=== PATIENT | male | born 1960 | race Caucasian/White ===

== ENCOUNTER 2021-05-22 21:58 | Emergency (ER) | payer BC, SELFPAY ==
--- NOTE | ~2021-05-22 | CT_ITS ---
EXAMINATION: CT abdomen pelvis wo con EXAM DATE: 05/22/2021 23:44 INDICATION: Left flank pain. TECHNIQUE: Spiral CT of the abdomen and pelvis was performed without contrast. Axial, coronal and sag ittal images were reviewed. The dose-length product (DLP) for this examination was 743.91 mGy-cm. T he exposure was tailored according to patient size (auto mA exposure control), and iterative reconstr uction (ASIR) was used as additional dose reduction technique. There is no prior study for compariso n. FINDINGS: There is punctate 1 mm stone in the left UVJ, axial image 175. There is moderate left perin ephric fat stranding and mild hydroureteronephrosis. Additional 3 mm left mid calyceal stone. There a re bilateral homogeneous renal lesions of varying densities consistent with cysts and hemorrhagic cys ts. The prostate is unremarkable. Small bilateral inguinal fat-containing hernias. The bladder is u nremarkable. The liver, spleen, adrenal glands and pancreas are unremarkable. There are gallstones within an othe rwise unremarkable gallbladder. No evidence of obstructive biliary disease. There is no retroperito constantino or pelvic lymphadenopathy. The appendix is normal. There is mild sigmoid colonic diverticulosis. There is no adjacent inflammat ory change to suggest diverticulitis. The stomach and small bowel are unremarkable. There is expecte d amount of colonic stool. No free intraperitoneal gas. The heart is normal in size. There are n o pericardial or pleural effusions. The lung bases are unremarkable. Small bone island in the left femoral neck. There are mild bony degenerative changes. IMPRESSION: 1. Left UVJ punctate 1 mm calcification, mild hydroureteronephrosis, moderate perinephric fat strand ing. 2. Bilateral renal lesions consistent with cysts and hemorrhagic cysts. 3. Left nephrolithiasis. Reviewed, dictated and finalized at location B. IMPRESSION: 1. Left UVJ punctate 1 mm calcification, mild hydroureteronephrosis, moderate perinephric fat stranding. 2. Bilateral renal lesions consistent with cysts and hemorrhagic cysts. 3. Left nephrolithiasis.
[2021-05-22 22:04] VITALS: BP 176/90; PULSE 77; RESP 20; TEMP 36.4; O2SAT 98
[2021-05-22 23:13] LABS: Basophils Absolute Auto 0.1 K/mm3 (0.0-0.1); Basophils Percent Auto 0.4 % (0.2-1.2); Eosinophils Percent Auto 0.1 % (0-4.4); Hematocrit 45.1 % (42.0-52.0); Hemoglobin 15.6 g/dL (14.0-18.0); Immature Granulocyte Absolute 0.06 K/mm3 (0.00-0.031); Immature Granulocyte Percent A 0.4 % (0-0.5); Lymphocytes Absolute Auto 0.99 K/mm3 (0.9-3.2); Lymphocytes Percent Auto 7.1 % (18.3-44.2); Mean Corpuscular HGB Conc 34.6 g/dl (32-36); Mean Corpuscular Hemoglobin 29.3 pg (26-34); Mean Corpuscular Volume 84.8 fl (80-100); Mean Platelet Volume 9.7 fl (7.4-10.4); Monocytes Absolute Auto 0.9 K/mm3 (0.1-0.6); Monocytes Percent Auto 6.2 % (2.6-8.5); Neutrophils Absolute Auto 12.1 K/mm3 (1.3-6.7); Neutrophils Percent Auto 85.8 % (45.5-73.1); Platelet Count Result 199 k/mm3 (150-375); Red Blood Count 5.32 M/mm3 (4.6-6.20); Red Cell Distribution Width 12.5 % (11.5-14.5)
[2021-05-22 23:21] LABS: Add Urine Microscopic? YES; Amorphous Sediment Urine Few; Appearance Urine Cloudy (Clear); Bacteria Urine Trace /hpf; Bilirubin Urine Negative (Negative); Blood Urine Negative (Negative); Color Urine Yellow (Yellow); Glucose Urine UA Negative (Negative); Ketones Urine Negative (Negative); Leukocyte Esterase Ur Negative LEU/UL (Negative); Nitrate Urine Negative (Negative); Protein Urine 1+ mg/dL (Negative); Specific Grav Ur 1.018 (1.001-1.035); Urobilinogen Urine Negative mg/dL (<2.0)
[2021-05-22 23:33] LABS: Alanine Aminotransferase 27 U/L (4-50); Alkaline Phosphatase 61 U/L (38-126); Anion Gap 13 mmol/L (8-16); Aspartate Amino Transferase 52 U/L (17-59); Bilirubin,Total 1.2 mg/dL (0.2-1.3); Blood Urea Nitrogen 21 mg/dL (9-20); Calcium 10.2 mg/dL (8.4-10.2); Carbon Dioxide 21 mmol/L (22-30); Chloride 108 mmol/L (98-107); Estimated CRCL calculation 54 ml/min; Estimated Glomerular Filt Rate 52; Glucose 145 mg/dL (65-110); Lipase 105 U/L (23-300); Potassium 4.8 mmol/L (3.4-5.0); Sodium 142 mmol/L (137-145)
[2021-05-23 00:21] VITALS: BP 165/76; PULSE 80; RESP 18; O2SAT 100
[2021-05-23] MEDS: SODIUM CHLORIDE 0.9% IV 1,000 ML 999 ML IV CONT (00:21)
[2021-05-23] MEDS: MORPHINE SULFATE (*CRX) 4 MG/ML INJ IV PUSH ×2 (00:21→01:51)
[2021-05-23] MEDS: ONDANSETRON INJ 4 MG/2 ML VIAL IV PUSH (00:21)
--- NOTE | 2021-05-23 00:21 | ED.GENADULT ---
HPI - General Adult General Chief complaint: Abdominal Pain Stated complaint: left lower back pain/abd pain Time Seen by Provider: 05/22/21 22:53 History of Present Illness HPI narrative: Patient 61-year-old gentleman who presents the emergency department with chief complaint of left flank pain. The patient reports the pain started suddenly this evening reports he was unable to get comfortable reports had a bit of nausea with this as well. Patient reports not improved by anything nor is it worsened by anything. Related Data Allergies Allergy/AdvReac Type Severity Reaction Status Date / Time Penicillins Allergy Unknown Unknown Verified 05/22/21 22:07 Review of Systems Review of Systems: A 10 system review of systems was completed on the patient and is negative except for what is stated in the HPI. Nursing and ancillary documentation was reviewed. Exam Narrative: GENERAL: Well-appearing, well-nourished, and in no acute distress. HEAD: Normocephalic, atraumatic. EYES: PERRLA and EOMI. ENT: Nares clear, no rhinorrhea or epistaxis. Mucous membranes moist. NECK: Supple. CHEST: Clear to auscultation. No respiratory distress. HEART: Regular rate and rhythm. No murmur heard. Normal peripheral pulses. ABDOMEN: Soft, nontender, nondistended, normal active bowel sounds. EXTREMITIES: Normal range of motion. No edema. SKIN: Warm, dry, no rash. NEURO: No focal deficits. Alert and oriented x3. PSYCH: Normal mood and affect. Course Course Emergency Course: CT scan showed evidence of a 2 mm stone at the left UVJ Urinalysis shows no evidence of UTI Vital Signs Vital signs: Vital Signs Temperature 36.4 C L 05/22/21 22:04 Pulse Rate 77 05/22/21 22:04 Respiratory Rate 20 05/22/21 22:04 Blood Pressure 176/90 H 05/22/21 22:04 Pulse Oximetry 98 05/22/21 22:04 Temperature 36.4 C L 05/22/21 22:04 Pulse Rate 80 05/23/21 00:21 Respiratory Rate 18 05/23/21 00:21 Blood Pressure 165/76 H 05/23/21 00:21 Pulse Oximetry 100 05/23/21 00:21 Medical Decision Making Vital Signs Vital Signs: Vital Signs Temperature 36.4 C L 05/22/21 22:04 Pulse Rate 77 05/22/21 22:04 Respiratory Rate 20 05/22/21 22:04 Blood Pressure 176/90 H 05/22/21 22:04 Pulse Oximetry 98 05/22/21 22:04 Temperature 36.4 C L 05/22/21 22:04 Pulse Rate 80 05/23/21 00:21 Respiratory Rate 18 05/23/21 00:21 Blood Pressure 165/76 H 05/23/21 00:21 Pulse Oximetry 100 05/23/21 00:21 Lab Data Result diagrams: 05/22/21 23:01 05/22/21 23:01 Labs: Lab Results 05/22/21 05/22/21 05/22/21 Range/Units 23:01 23:01 23:01 WBC 14.0 H (4.5-10.0) K/mm3 RBC 5.32 (4.6-6.20) M/mm3 Hgb 15.6 (14.0-18.0) g/dL Hct 45.1 (42.0-52.0) % MCV 84.8 (80-100) fl MCH 29.3 (26-34) pg MCHC 34.6 (32-36) g/dl RDW 12.5 (11.5-14.5) % Plt Count 199 (150-375) k/mm3 MPV 9.7 (7.4-10.4) fl Immature Gran % (Auto) 0.4 (0-0.5) % Neut % (Auto) 85.8 H (45.5-73.1) % Lymph % (Auto) 7.1 L (18.3-44.2) % [place] % (Auto) 6.2 (2.6-8.5) % Eos % (Auto) 0.1 (0-4.4) % Baso % (Auto) 0.4 (0.2-1.2) % Lymph # (Auto) 0.99 (0.9-3.2) K/mm3 [place] # (Auto) 0.9 H (0.1-0.6) K/mm3 Eos # (Auto) 0.0 (0-0.3) K/mm3 Baso # (Auto) 0.1 (0.0-0.1) K/mm3 Abs Immat Gran (auto) 0.06 H (0.00-0.031) K/mm3 Absolute Neuts (auto) 12.1 H (1.3-6.7) K/mm3 Absolute Nucleated RBC 0.0 (0.0-0.012) K/mm3 Nucleated RBC % 0.0 (0.0-0.2) % Sodium 142 (137-145) mmol/L Potassium 4.8 (3.4-5.0) mmol/L Chloride 108 H (98-107) mmol/L Carbon Dioxide 21 L (22-30) mmol/L Anion Gap 13 (8-16) mmol/L BUN 21 H (9-20) mg/dL Creatinine 1.40 H (0.7-1.3) mg/dL Estim Creat Clear Calc 54 ml/min Estimated GFR 52 L (59 - ) Glucose 145 H (65-110) mg/dL Calcium 10.2 (8.4-10.2) mg/dL Total Bilirubin 1.2 (0.2-1.3)
[2021-05-23 02:45] VITALS: BP 146/86; PULSE 82; RESP 18; O2SAT 100
== END 2021-05-23 02:46 | disposition home or self-care (01) ==
PROVIDERS: Emergency Provider Emergency Medicine; PCP Internal Medicine
DX: N20.1 Calculus of ureter (principal)
CPT/HCPCS: 36415; 74176; 80053; 81001; 83690; 85025; 96361; 96374; 96375; 99284; J2270; J2405; J7030